=== PATIENT | female | born 1950 | race Caucasian/White ===

== ENCOUNTER 2017-05-26 05:50 | Day surgery (SDC) | payer OTHER ==
[~2017-05-26] VITALS: Ht 157.5 cm; Wt 78.5 kg
[~2017-05-26 05:50] MED LIST: ALBU90OI61 INH; AMLO5 PO; ASPI81CH PO; ATOR40TA PO; BUPR150ER PO; CEFU500 PO; CIPR500 PO; CLON.1 PO; CLOP75 PO; CYPR4 PO; DIAZ5 PO; IBUP400 PO; IRBE150 PO; LEVSOD100 PO; LEVSOD125 PO; LORA10 PO; LOSARTAN-HCTZ1 EACH PO; LOSHYD PO; MECL25 PO; Metoprolol Succ25 MG PO; NICO21TP; NITR.4SL SL; ONDA8 PO; OXYACE5T PO; Omeprazole20 M1 PO; POTA10T PO; POTA8 PO; PRED10 PO; PROM25 PO; TIOT18 INH; TRAM50 PO; VENL150ER PO; VENL75 PO
[2018-03-25] MEDS ORDERED: BUSP5 PO (13:19)
[2018-03-25] MEDS ORDERED: VARE1 PO (15:45)
[2018-03-29] MEDS ORDERED: EXTRA STRENGTH500 MG PO (12:43)
[2018-03-29] MEDS ORDERED: Ferrous Sulfat324 MG PO (12:44)
[2018-03-29] MEDS ORDERED: ASCO500 PO (12:44)
[2018-03-29] MEDS ORDERED: Amoxicillin875 MG PO (12:45)
[2018-03-29] MEDS ORDERED: PRED10 PO (12:46)
== END 2017-05-26 14:29 | disposition home or self-care (01) ==
LOC: ORSCMMR 05:50 → SURS 13:46
PROVIDERS: Surgery
PROC: 0WUF0JZ Supplement Abdominal Wall with Synthetic Substitute, Open Approach (ICD-10-PCS; principal; 2017-05-26 07:30)
DX: K43.2 Incisional hernia without obstruction or gangrene (principal); I10 Essential (primary) hypertension; J44.9 Chronic obstructive pulmonary disease, unspecified; G47.33 Obstructive sleep apnea (adult) (pediatric); I25.10 Atherosclerotic heart disease of native coronary artery without angina pectoris; E03.9 Hypothyroidism, unspecified; F17.210 Nicotine dependence, cigarettes, uncomplicated; Z79.899 Other long term (current) drug therapy; Z79.82 Long term (current) use of aspirin
CPT/HCPCS: J0690; J1100; J1885; J2250; J2405; J2710; J3010; J7120

== ENCOUNTER → 2017-08-22 | Outpatient (CLI) | payer OTHER | END | disposition home or self-care (01) | LOC: LAB 13:51 → LAB SHORT 13:51 | DX: L98.9 Disorder of the skin and subcutaneous tissue, unspecified (principal) | CPT/HCPCS: 87070; 87077; 87147; 87185; 87186; 87205 ==

== ENCOUNTER 2018-12-28 16:39 | Emergency (ER) | payer OTHER ==
[~2018-12-28] VITALS: Ht 157.5 cm; Wt 74.8 kg
[~2018-12-28 16:39] MED LIST changes: +ASCO500 PO; -ASPI81CH PO; +Amoxicillin875 MG PO; +Aspirin EC81 MG PO; +Augmentin 875-1 EACH PO; +BUSP5 PO; +EXTRA STRENGTH500 MG PO; +Ferrous Sulfat324 MG PO; +Prednisone20 MG PO; +VARE1 PO
[2018-12-28] MEDS ORDERED: ONDA4ODT MM (18:31)
== END 2018-12-28 18:38 | disposition home or self-care (01) ==
LOC: ER 16:39
DX: K52.9 Noninfective gastroenteritis and colitis, unspecified (principal); N39.0 Urinary tract infection, site not specified; J44.9 Chronic obstructive pulmonary disease, unspecified; I10 Essential (primary) hypertension; E03.9 Hypothyroidism, unspecified; F32.9 Major depressive disorder, single episode, unspecified; E78.5 Hyperlipidemia, unspecified; I25.10 Atherosclerotic heart disease of native coronary artery without angina pectoris; F17.210 Nicotine dependence, cigarettes, uncomplicated; Z88.2 Allergy status to sulfonamides; Z88.5 Allergy status to narcotic agent; Z79.899 Other long term (current) drug therapy
CPT/HCPCS: 36415; 74176; 82947; 87077; 87086; 87186; 96374; 99284-25; J2405

== ENCOUNTER 2019-02-05 08:45 | Inpatient (IN) | payer OTHER ==
[~2019-02-05] VITALS: Ht 157.5 cm; Wt 73.8 kg
[~2019-02-05 08:45] MED LIST changes: +ONDA4ODT MM
[2019-02-05 09:25] LABS: BASOPHILS ABSOLUTE AUTO 0.06 K/mm3 (0.00-0.23); BASOPHILS PERCENT AUTO 1 % (0-2); EOSINOPHILS ABSOLUTE AUTO 0.34 K/mm3 (0.00-0.68); EOSINOPHILS PERCENT AUTO 3 % (0-6); Hematocrit 40.9 % (33.0-51.0); IMMATURE GRAN ABSOLUTE AUTO 0.04 K/mm3 (0.00-0.10); IMMATURE GRAN PERCENT AUTO 0 % (0-1); LYMPHOCYTES ABSOLUTE AUTO 0.83 K/mm3 (0.84-5.20); LYMPHOCYTES PERCENT AUTO 7 % (21-46); MONOCYTES ABSOLUTE AUTO 0.69 K/mm3 (0.16-1.47); MONOCYTES PERCENT AUTO 6 % (4-13); Mean Corpuscular HGB Conc 31.8 g/dL (31.5-36.5); Mean Corpuscular Volume 95 fL (80-100); Mean Platelet Volume 11.2 fL (9.1-12.4); NEUTROPHILS ABSOLUTE AUTO 10.36 K/mm3 (1.96-9.15); NEUTROPHILS PERCENT AUTO 84 % (41-73); Platelet Count 238 K/mm3 (150-400); RDW Coefficient Variation 12.9 % (11.7-14.2); RDW Standard Deviation 45.1 fL (35.1-46.3); Red Blood Cell Count 4.33 M/mm3 (3.80-5.20); White Blood Cell Count 12.32 K/mm3 (4.00-11.30)
[2019-02-05 09:44] LABS: Alanine Aminotransfer (ALT/SGP 18 U/L (12-78); Albumin, Blood 3.3 g/dL (3.4-5.0); Albumin/Globulin Ratio 0.8 (0.8-1.8); Alk Phos 165 U/L (50-136); Anion Gap 6 mmol/L (6-16); Aspartate Aminotrans (AST/SGOT 15 U/L (12-37); Bilirubin, Total 0.5 mg/dL (0.1-1.0); Blood Urea Nitrogen 21 mg/dL (8-24); Bun/Creatinine Ratio 19.1 (12.0-20.0); CO2, Blood 28 mmol/L (21-32); Calcium, Blood 8.7 mg/dL (8.5-10.1); Chloride, Blood 106 mmol/L (98-108); Globulin, Blood 4.1 g/dL (2.2-4.0); Glomerular Filtration Rate 52 (60-); Glucose, Blood 109 mg/dL (70-99); Potassium, Blood 3.6 mmol/L (3.5-5.5); Sodium, Blood 140 mmol/L (136-145); Total Protein, Blood 7.4 g/dL (6.4-8.2); Troponin I <0.015 ng/mL (0.000-0.040)
[2019-02-05] MEDS ORDERED: Clonazepam0.5 MG PO (12:20)
[2019-02-05] MEDS ORDERED: LOSARTAN POTASS50 MG PO (12:21)
[2019-02-05] MEDS ORDERED: ROPINIROLE HCL1 MG PO (12:21)
[2019-02-05] MEDS ORDERED: MICROZIDE12.5 MG PO (12:21)
--- NOTE | 2019-02-05 18:28 | NUR ---
SHIFT SUMMARY RECEIVED PT TO RM 340 FROM ER. A&O, MARCUS AND CO-OP. RECEIVED REPORT FROM BREANN AREVALO. PT TO ER WITH C/O SOB STARTING YESTERDAY. PER REPORT, PT'S SON WITH RECENT RESPIRATORY ILLNESS RECEIVING ABX AND IH FOR TX. PT THEN REPORTED THAT SHE FELT SHE WAS HAVING SYPTOMS WELL. PT WITH HX OF COPD AND CURRENT SMOKER X PAST 40 YRS. PT ADMITTED FOR STEROID TX. RESTING QUIETLY HF, WATCHING TV. NO C/O. NO S/SX OF DISTRESS NOTED OR REPORTED TO PRESENT. RESP PANEL OBTAINED AND SENT. PT INFORMED OF NEEDED UA, PT IS INDEPENDENT IN . NO FURTHER NEEDS TO PRESENT. CALL LT IN REACH.
[2019-02-05 19:25] LABS: Source, Urine Clean Catch
[2019-02-05 19:31] LABS: Bilirubin, Urine Neg (Neg); Blood, Urine 3+ (Neg); Glucose Qualitative, Urine 1+ (Neg); Ketones, Urine Neg (Neg); Leukocyte Esterase, Urine 2+ (Neg); Nitrite, Urine Neg (Neg); Protein, Urine Neg (Neg); Specific Gravity, Urine 1.015 (1.003-1.022); Urobilinogen, Urine NORM (Normal)
[2019-02-05 19:38] LABS: Appearance, Urine Clear (Clear); Color, Urine Yellow (P-Yellow)
[2019-02-05 19:39] LABS: Bacteria Mod /hpf; Red Blood Cells, Urine 0-2 /hpf (0-2); Squamous Epithelial Cells Not Seen /hpf (Few)
[2019-02-05 20:20] LABS: Adenovirus Not Detected (NOT DETECT); Bordetella pertussis Not Detected (NOT DETECT); Chlamydophila pneumoniae Not Detected (NOT DETECT); Coronavirus 229E Not Detected (NOT DETECT); Coronavirus HKU1 Not Detected (NOT DETECT); Coronavirus NL63 Not Detected (NOT DETECT); Coronavirus OC43 Not Detected (NOT DETECT); Human Metapneumovirus Not Detected (NOT DETECT); Human Rhinovirus/Enterovirus Detected (NOT DETECT); Influenza A Not Detected (NOT DETECT); Influenza A/2009-H1 Not Detected (NOT DETECT); Influenza A/H1 Not Detected (NOT DETECT); Influenza A/H3 Not Detected (NOT DETECT); Influenza B Not Detected (NOT DETECT); Mycoplasma pneumoniae Not Detected (NOT DETECT); Parainfluenza Virus 1 Not Detected (NOT DETECT); Parainfluenza Virus 2 Not Detected (NOT DETECT); Parainfluenza Virus 3 Not Detected (NOT DETECT); Parainfluenza Virus 4 Not Detected (NOT DETECT); Respiratory Syncytial Virus Not Detected (NOT DETECT)
[2019-02-06 05:23] LABS: BASOPHILS ABSOLUTE AUTO 0.03 K/mm3 (0.00-0.23); BASOPHILS PERCENT AUTO 0 % (0-2); EOSINOPHILS PERCENT AUTO 0 % (0-6); Hematocrit 35.4 % (33.0-51.0); Hemoglobin 11.4 g/dL (11.5-16.0); IMMATURE GRAN ABSOLUTE AUTO 0.16 K/mm3 (0.00-0.10); IMMATURE GRAN PERCENT AUTO 1 % (0-1); LYMPHOCYTES ABSOLUTE AUTO 0.86 K/mm3 (0.84-5.20); LYMPHOCYTES PERCENT AUTO 4 % (21-46); MONOCYTES ABSOLUTE AUTO 0.48 K/mm3 (0.16-1.47); MONOCYTES PERCENT AUTO 2 % (4-13); Mean Corpuscular HGB 29.9 pg (26.0-34.0); Mean Corpuscular HGB Conc 32.2 g/dL (31.5-36.5); Mean Corpuscular Volume 93 fL (80-100); Mean Platelet Volume 11.3 fL (9.1-12.4); NEUTROPHILS ABSOLUTE AUTO 18.96 K/mm3 (1.96-9.15); NEUTROPHILS PERCENT AUTO 93 % (41-73); Platelet Count 220 K/mm3 (150-400); RDW Coefficient Variation 13.1 % (11.7-14.2); RDW Standard Deviation 44.7 fL (35.1-46.3); Red Blood Cell Count 3.81 M/mm3 (3.80-5.20); White Blood Cell Count 20.49 K/mm3 (4.00-11.30)
[2019-02-06 05:41] LABS: Alanine Aminotransfer (ALT/SGP 15 U/L (12-78); Albumin, Blood 2.8 g/dL (3.4-5.0); Albumin/Globulin Ratio 0.7 (0.8-1.8); Alk Phos 129 U/L (50-136); Anion Gap 7 mmol/L (6-16); Aspartate Aminotrans (AST/SGOT 13 U/L (12-37); Bilirubin, Total 0.2 mg/dL (0.1-1.0); Blood Urea Nitrogen 20 mg/dL (8-24); Bun/Creatinine Ratio 20.9 (12.0-20.0); CO2, Blood 27 mmol/L (21-32); Calcium, Blood 8.6 mg/dL (8.5-10.1); Chloride, Blood 106 mmol/L (98-108); Creatinine, Blood 0.96 mg/dL (0.40-1.00); Globulin, Blood 3.8 g/dL (2.2-4.0); Glomerular Filtration Rate >60 (60-); Glucose, Blood 173 mg/dL (70-99); Magnesium, Blood 1.5 mg/dL (1.6-2.4); Potassium, Blood 3.6 mmol/L (3.5-5.5); Sodium, Blood 140 mmol/L (136-145); Total Protein, Blood 6.6 g/dL (6.4-8.2)
--- NOTE | 2019-02-06 07:34 | NUR ---
02/06/19 0710 AWAKENED FOR AM MEDS. CPAP WAS ON ALL NIGHT WITH O2 AT 3LPM. STATES SHE SLEPT POORLY DUE TO STEROID MED. UP TO BS FOR LARGE BROWN BM AND VOIDING.
--- NOTE | 2019-02-06 14:19 | NUR ---
CHEST PAIN: PATIENT REPORTING CHEST PAIN, THROAT TIGHTNESS, AND JAW PAIN. PATIENT REPORTS THAT AT THE PEAK, THE CHEST PAIN WAS AT A 7/10 AND NOW IT IS A 2/10. PATIENT REPORTS A COORELATION BETWEEN HER DUNEB TREATMENTS AND THESE SENSATIONS. PATIENT'S VITAL SIGNS ARE STABLE COMPARED TO PRIOR VITALS SIGNS. PATIENT DENIES SOB OR DIFFICULTY BREATHING. PATIENT RESTING IN BED. PATIENT DENIES DIZZINESS OR LIGHTHEADEDNESS. PATIENT REPORTS SIMILAR SENSATIONS PRIOR TO HER CABG SURGERY. NOTIFIED DR. MARCH. STAT EKG AND TROPONIN. NOTIFIED DR. MARCH OF EKG RESULTS. DR. MARCH IN TO VISIT PATIENT AND DISCUSS THE DUONEB TREATMENT AND EKG RESULTS (NO SIGNIFICANT CHANGES COMPARED TO ED EKG TAKEN AT ADMISSION). PATIENT AGREES TO NOTIFY STAFF IF SHE EXPERIENCES THE SAME SENSATIONS AFTER HER DUONEB TREATMENT THIS EVENING. PATIENT CALM AND COOPERATIVE.
--- NOTE | 2019-02-06 18:39 | NUR ---
END OF SHIFT SUMMARY: PATIENT REPORTED FEELING MUCH BETTER THIS MORNING. BY THE END OF THE SHIFT PATIENT WAS FEEL ING FATIGUED. PATIENT REPORTED CHEST PAIN, THROAT TIGHTNESS, AND JAW PAIN THAT SHE RELATES TO THE DUONEB TREATMENT. SEE NURSE'S NOTE. DR. MARCH REQUESTED THAT SHE TRY THE DUONEB TREATMENT ONE MORE TIME. PATIENT REPORTED THE SAME RESULTS POST-TREATMENT AND IS REQUESTING TO NO LONGER HAVE THE DUONEB TREATMENTS. DR. MARCH NOTIFIED. NEW ORDER TO DISCONTINUE DUONEB. PATIENT CONTINUES TO HAVE SOME SOB WITH ACTIVITY AND ANXIETY. O2 SATURATION MAINTAINED FROM 90-92% ON 3L/MIN OF O2 VIA NC.
--- NOTE | 2019-02-07 06:40 | NUR ---
SHIFT SUMMARY NO ACUTE EVENTS OVERNIGHT. PATIENT SLEPT WITH CPAP ON THROUGHOUT THE NIGHT. RIGHT HAND IV SALINE LOCKED AND PATENT. PATIENT UP A BENJAMIN IN ROOM AND TO BATHROOM. WILL CONTINUE TO MONITOR AND REPORT TO ONCOMING RN.
[2019-02-07] MEDS ORDERED: AIRDUO RESPICL1 EAC2 INH (14:46)
[2019-02-07] MEDS ORDERED: Ropinirole HCl1 MG PO (14:47)
[2019-02-07] MEDS ORDERED: Nicoderm Cq1 EAC1 TOP (14:47)
[2019-02-07] MEDS ORDERED: Prednisone10 MG PO (14:49)
--- NOTE | 2019-02-07 15:58 | NUR ---
Pt visit this afternoon. Pt just finished getting dressed and states she is getting discharged. Visit was brief. Engaged in discussion regarding AD/POLST. Pt reports having one completed with her PCP. Pt reports no concerns at this time. Will call PCP for copy of AD/POLST. Palliative Care will remain available.
--- NOTE | 2019-02-07 16:26 | NUR ---
DISCHARGE PT STATE SHORTNESS OF BREATH CONTINUES W EXERTION HOWEVER IMPROVED. ABLE TO TITRATE OFF OXYGEN @ REST, BIOX 93%, DR MARCH STATE SHE MAY GO HOME TODAY AFTER HOME O2 EVAL. RT STATE PASSED EVAL, NO ADDITIONAL HOME OXYGEN NEEDED. DR ROBERTS D/C HOME ORDERS. SCRIPTS FAXED TO [facility]. IV D/C INTACT. D/C INSTRUCT REVIEWED W PT & DAUGHTER. SHE DRESS & GATHER BELONGINGS IND. W/C ESCORT FROM HOSP PROVIDED. SHE IS PLEASANT/APPRECIATIVE.
== END 2019-02-07 16:25 | disposition home or self-care (01) | DRG 871 ==
LOC: ER 08:45 → MEDS 15:23
PROVIDERS: Emergency Medicine; Nurse Practitioner Acute Care; ADMIT Family Medicine
PROC: 5A09457 Assistance with Respiratory Ventilation, 24-96 Consecutive Hours, Continuous Positive Airway Pressure (ICD-10-PCS; principal; 2019-02-05)
DX: A41.9 Sepsis, unspecified organism (principal); J96.21 Acute and chronic respiratory failure with hypoxia; J44.1 Chronic obstructive pulmonary disease with (acute) exacerbation; I25.10 Atherosclerotic heart disease of native coronary artery without angina pectoris; Z85.819 Personal history of malignant neoplasm of unspecified site of lip, oral cavity, and pharynx; I10 Essential (primary) hypertension; E83.42 Hypomagnesemia; E03.9 Hypothyroidism, unspecified; F17.210 Nicotine dependence, cigarettes, uncomplicated; G47.33 Obstructive sleep apnea (adult) (pediatric); B97.89 Other viral agents as the cause of diseases classified elsewhere; Z99.81 Dependence on supplemental oxygen; Z95.1 Presence of aortocoronary bypass graft; F32.9 Major depressive disorder, single episode, unspecified; F43.10 Post-traumatic stress disorder, unspecified; K21.9 Gastro-esophageal reflux disease without esophagitis; F41.1 Generalized anxiety disorder
CPT/HCPCS: 0099U; 36415; 71046; 80053; 81001; 83735; 83880; 84484; 85025; 87086; 93005; 93010; 94640; 94644; 94660; 94761; 94762; 96361; 96374; 99285-25; A9270; J1650; J2930; J3475; J7030; J7512

== ENCOUNTER 2021-07-29 11:02 | Emergency (ER) | payer OTHER ==
[~2021-07-29] VITALS: Ht 157.5 cm; Wt 76.2 kg
[~2021-07-29 11:02] MED LIST changes: +AIRDUO RESPICL1 EAC2 INH; +Clonazepam0.5 MG PO; +LOSARTAN POTASS50 MG PO; +MICROZIDE12.5 MG PO; +Nicoderm Cq1 EAC1 TOP; +Prednisone10 MG PO; +ROPINIROLE HCL1 MG PO; +Ropinirole HCl1 MG PO
[2021-07-29 11:59] LABS: BASOPHILS ABSOLUTE AUTO 0.06 K/mm3 (0.00-0.23); BASOPHILS PERCENT AUTO 1 % (0-2); EOSINOPHILS ABSOLUTE AUTO 0.37 K/mm3 (0.00-0.68); EOSINOPHILS PERCENT AUTO 3 % (0-6); Hematocrit 34.7 % (33.0-51.0); Hemoglobin 11.2 g/dL (11.5-16.0); IMMATURE GRAN ABSOLUTE AUTO 0.04 K/mm3 (0.00-0.10); IMMATURE GRAN PERCENT AUTO 0 % (0-1); LYMPHOCYTES ABSOLUTE AUTO 1.81 K/mm3 (0.84-5.20); LYMPHOCYTES PERCENT AUTO 16 % (21-46); MONOCYTES ABSOLUTE AUTO 1.02 K/mm3 (0.16-1.47); MONOCYTES PERCENT AUTO 9 % (4-13); Mean Corpuscular HGB 30.4 pg (26.0-34.0); Mean Corpuscular HGB Conc 32.3 g/dL (31.5-36.5); Mean Corpuscular Volume 94 fL (80-100); Mean Platelet Volume 10.9 fL (9.1-12.4); NEUTROPHILS ABSOLUTE AUTO 7.98 K/mm3 (1.96-9.15); NEUTROPHILS PERCENT AUTO 71 % (41-73); Platelet Count 279 K/mm3 (150-400); RDW Standard Deviation 44.7 fL (35.1-46.3); Red Blood Cell Count 3.69 M/mm3 (3.80-5.20); White Blood Cell Count 11.28 K/mm3 (4.00-11.30)
[2021-07-29 12:12] LABS: Albumin, Blood 2.8 g/dL (3.4-5.0); Albumin/Globulin Ratio 0.7 (0.8-1.8); Bilirubin, Total 0.4 mg/dL (0.1-1.0); Bun/Creatinine Ratio 8.7 (12.0-20.0); Creatinine, Blood 1.27 mg/dL (0.40-1.00); Globulin, Blood 4.3 g/dL (2.2-4.0); Potassium, Blood 3.1 mmol/L (3.5-5.5); Total Protein, Blood 7.1 g/dL (6.4-8.2)
[2021-07-29 15:47] LABS: Source, Urine Clean Catch
[2021-07-29 16:10] LABS: Appearance, Urine Clear (Clear); Bilirubin, Urine Neg (Neg); Blood, Urine 2+ (Neg); Color, Urine Yellow (P-Yellow); Glucose Qualitative, Urine Neg (Neg); Ketones, Urine Neg (Neg); Leukocyte Esterase, Urine Neg (Neg); Nitrite, Urine Neg (Neg); Protein, Urine Neg (Neg); Urobilinogen, Urine NORM (Normal)
[2021-07-29 16:47] LABS: Bacteria Few /hpf; Squamous Epithelial Cells Few /hpf (Few); White Blood Cells, Urine 0-2 /hpf (0-5)
[2021-07-29 18:44] LABS: Adenovirus F 40/41 Not Detected (NOT DETECT); Astrovirus Not Detected (NOT DETECT); Campylobacter Sp Not Detected (NOT DETECT); Cryptosporidium Not Detected (NOT DETECT); Cyclospora Cayetanensis Not Detected (NOT DETECT); E. Coli O157 Not Detected (NOT DETECT); Entamoeba Histolytica Not Detected (NOT DETECT); Enteroaggregative E. coli-EAEC Not Detected (NOT DETECT); Enteropathogenic E. coli-EPEC Not Detected (NOT DETECT); Enterotoxigenic E. coli-ETEC Not Detected (NOT DETECT); Giardia Lamblia Not Detected (NOT DETECT); Norovirus GI/GII Not Detected (NOT DETECT); Plesiomonas Shigelloides Not Detected (NOT DETECT); Rotavirus A Not Detected (NOT DETECT); Salmonella Sp Not Detected (NOT DETECT); Sapovirus Not Detected (NOT DETECT); Shiga Toxin-prod E. coli-STEC Not Detected (NOT DETECT); Shigella/Enteroin E. coli-EIEC Not Detected (NOT DETECT); Vibrio Cholerae Not Detected (NOT DETECT); Vibrio Sp Not Detected (NOT DETECT); Yersinia Enterocolitica Not Detected (NOT DETECT)
== END 2021-07-29 17:33 | disposition home or self-care (01) ==
LOC: ER 11:02
PROVIDERS: Physician Assistant
DX: K52.9 Noninfective gastroenteritis and colitis, unspecified (principal); E87.6 Hypokalemia; I12.9 Hypertensive chronic kidney disease with stage 1 through stage 4 chronic kidney disease, or unspecified chronic kidney disease; N18.9 Chronic kidney disease, unspecified; Z99.2 Dependence on renal dialysis; K21.9 Gastro-esophageal reflux disease without esophagitis; E78.5 Hyperlipidemia, unspecified; J44.9 Chronic obstructive pulmonary disease, unspecified; F17.210 Nicotine dependence, cigarettes, uncomplicated; Z79.899 Other long term (current) drug therapy; Z88.2 Allergy status to sulfonamides; Z88.5 Allergy status to narcotic agent
CPT/HCPCS: 0097U; 36415; 74177; 80053; 81001; 83690; 85025; 87324; 99284-25; A9270; Q9967

== ENCOUNTER 2021-11-30 07:36 | Day surgery (SDC) | payer OTHER ==
[~2021-11-30] VITALS: Ht 157.5 cm; Wt 76.5 kg
[2021-11-30] MEDS ORDERED: PROP10 PO (08:10)
--- NOTE | 2021-11-30 08:22 | NUR ---
11/30/21 0822 Apple Barrios CALL LIGHT WITHIN REACH. TETRACAINE AT 0805 IN THE LEFT EYE PLEDGETT IN THE LEFT EYE AT 0806
== END 2021-11-30 10:08 | disposition home or self-care (01) ==
LOC: ORSCSDS 07:36
PROVIDERS: Ophthalmology
PROC: 08RK3JZ Replacement of Left Lens with Synthetic Substitute, Percutaneous Approach (ICD-10-PCS; principal; 2021-11-30 09:00)
DX: H25.12 Age-related nuclear cataract, left eye (principal); I25.10 Atherosclerotic heart disease of native coronary artery without angina pectoris; Z95.1 Presence of aortocoronary bypass graft; I12.9 Hypertensive chronic kidney disease with stage 1 through stage 4 chronic kidney disease, or unspecified chronic kidney disease; N18.9 Chronic kidney disease, unspecified; K21.9 Gastro-esophageal reflux disease without esophagitis; J44.9 Chronic obstructive pulmonary disease, unspecified; F32.A Depression, unspecified; E78.00 Pure hypercholesterolemia, unspecified; E03.9 Hypothyroidism, unspecified; F17.210 Nicotine dependence, cigarettes, uncomplicated; Z79.899 Other long term (current) drug therapy
CPT/HCPCS: J2001; J2250; J3301; J7040; V2632

== ENCOUNTER → 2022-04-30 | Outpatient (CLI) | payer OTHER ==
[~2022-04-30] MED LIST changes: +PROP10 PO
[2022-04-30 12:12] LABS: BASOPHILS ABSOLUTE AUTO 0.08 K/mm3 (0.00-0.23); BASOPHILS PERCENT AUTO 0 % (0-2); EOSINOPHILS PERCENT AUTO 0 % (0-6); Hemoglobin 11.3 g/dL (11.5-16.0); IMMATURE GRAN PERCENT AUTO 0 % (0-1); LYMPHOCYTES ABSOLUTE AUTO 1.75 K/mm3 (0.84-5.20); LYMPHOCYTES PERCENT AUTO 8 % (21-46); MONOCYTES ABSOLUTE AUTO 1.82 K/mm3 (0.16-1.47); MONOCYTES PERCENT AUTO 8 % (4-13); Mean Corpuscular HGB 29.2 pg (26.0-34.0); Mean Corpuscular HGB Conc 32.3 g/dL (31.5-36.5); Mean Corpuscular Volume 90 fL (80-100); Mean Platelet Volume 10.7 fL (9.1-12.4); NEUTROPHILS ABSOLUTE AUTO 18.39 K/mm3 (1.96-9.15); NEUTROPHILS PERCENT AUTO 83 % (41-73); Platelet Count 312 K/mm3 (150-400); RDW Coefficient Variation 13.4 % (11.7-14.2); Red Blood Cell Count 3.87 M/mm3 (3.80-5.20); White Blood Cell Count 22.24 K/mm3 (4.00-11.30)
[2022-04-30 12:24] LABS: Albumin, Blood 2.6 g/dL (3.4-5.0); Albumin/Globulin Ratio 0.5 (0.8-1.8); Bilirubin, Direct 0.3 mg/dL (0.0-0.3); Bilirubin, Indirect 0.4 mg/dL (0.1-0.7); Bilirubin, Total 0.7 mg/dL (0.1-1.0); Bun/Creatinine Ratio 11.1 (12.0-20.0); Calcium, Blood 8.2 mg/dL (8.5-10.1); Creatinine, Blood 1.44 mg/dL (0.40-1.00); Potassium, Blood 3.1 mmol/L (3.5-5.5); Total Protein, Blood 7.6 g/dL (6.4-8.2)
== END ==
LOC: LAB SHORT 12:09 → LAB 12:09
PROVIDERS: Family Medicine
DX: I10 Essential (primary) hypertension (principal)
CPT/HCPCS: 80053; 82248; 85025

== ENCOUNTER 2022-05-07 02:52 | Emergency (ER) | payer OTHER ==
[~2022-05-07] VITALS: Ht 160 cm; Wt 72.6 kg
[2022-05-07 04:00] LABS: BASOPHILS ABSOLUTE AUTO 0.09 K/mm3 (0.00-0.23); BASOPHILS PERCENT AUTO 0 % (0-2); EOSINOPHILS ABSOLUTE AUTO 0.14 K/mm3 (0.00-0.68); EOSINOPHILS PERCENT AUTO 1 % (0-6); Hematocrit 33.8 % (33.0-51.0); Hemoglobin 10.9 g/dL (11.5-16.0); IMMATURE GRAN PERCENT AUTO 1 % (0-1); LYMPHOCYTES ABSOLUTE AUTO 1.37 K/mm3 (0.84-5.20); LYMPHOCYTES PERCENT AUTO 6 % (21-46); MONOCYTES ABSOLUTE AUTO 1.87 K/mm3 (0.16-1.47); MONOCYTES PERCENT AUTO 8 % (4-13); Mean Corpuscular HGB 28.8 pg (26.0-34.0); Mean Corpuscular HGB Conc 32.2 g/dL (31.5-36.5); Mean Corpuscular Volume 89 fL (80-100); Mean Platelet Volume 11.1 fL (9.1-12.4); NEUTROPHILS ABSOLUTE AUTO 19.87 K/mm3 (1.96-9.15); NEUTROPHILS PERCENT AUTO 85 % (41-73); Platelet Count 437 K/mm3 (150-400); RDW Coefficient Variation 14.1 % (11.7-14.2); RDW Standard Deviation 45.7 fL (35.1-46.3); Red Blood Cell Count 3.78 M/mm3 (3.80-5.20); White Blood Cell Count 23.54 K/mm3 (4.00-11.30)
[2022-05-07 04:23] LABS: Albumin/Globulin Ratio 0.4 (0.8-1.8); Bilirubin, Total 0.9 mg/dL (0.1-1.0); Bun/Creatinine Ratio 16.5 (12.0-20.0); Calcium, Blood 8.9 mg/dL (8.5-10.1); Creatinine, Blood 1.21 mg/dL (0.40-1.00); Globulin, Blood 4.5 g/dL (2.2-4.0); Potassium, Blood 3.7 mmol/L (3.5-5.5); Total Protein, Blood 6.5 g/dL (6.4-8.2)
== END 2022-05-07 05:22 | disposition left against medical advice (07) ==
LOC: ER 02:52
PROVIDERS: Student in an Organized Health Care Education/Training Program
DX: R06.02 Shortness of breath (principal); Z53.21 Procedure and treatment not carried out due to patient leaving prior to being seen by health care provider
CPT/HCPCS: 36415; 80053; 85025; 93005; 93010

== ENCOUNTER 2022-05-13 10:39 | Inpatient (IN) | payer OTHER ==
[~2022-05-13] VITALS: Ht 167.6 cm; Wt 70.6 kg
[2022-05-13 11:31] LABS: BASOPHILS ABSOLUTE AUTO 0.06 K/mm3 (0.00-0.23); BASOPHILS PERCENT AUTO 0 % (0-2); EOSINOPHILS ABSOLUTE AUTO 0.08 K/mm3 (0.00-0.68); EOSINOPHILS PERCENT AUTO 0 % (0-6); Hematocrit 31.5 % (33.0-51.0); Hemoglobin 10.7 g/dL (11.5-16.0); IMMATURE GRAN ABSOLUTE AUTO 0.28 K/mm3 (0.00-0.10); IMMATURE GRAN PERCENT AUTO 1 % (0-1); LYMPHOCYTES ABSOLUTE AUTO 1.43 K/mm3 (0.84-5.20); LYMPHOCYTES PERCENT AUTO 5 % (21-46); MONOCYTES ABSOLUTE AUTO 1.97 K/mm3 (0.16-1.47); MONOCYTES PERCENT AUTO 7 % (4-13); Mean Corpuscular HGB 29.8 pg (26.0-34.0); Mean Corpuscular Volume 88 fL (80-100); Mean Platelet Volume 10.5 fL (9.1-12.4); NEUTROPHILS PERCENT AUTO 87 % (41-73); Platelet Count 546 K/mm3 (150-400); RDW Coefficient Variation 14.6 % (11.7-14.2); RDW Standard Deviation 47.2 fL (35.1-46.3); Red Blood Cell Count 3.59 M/mm3 (3.80-5.20); White Blood Cell Count 28.92 K/mm3 (4.00-11.30)
[2022-05-13 11:54] LABS: Albumin, Blood 1.7 g/dL (3.4-5.0); Albumin/Globulin Ratio 0.3 (0.8-1.8); Bilirubin, Total 0.7 mg/dL (0.1-1.0); Calcium, Blood 8.5 mg/dL (8.5-10.1); Creatinine, Blood 1.2 mg/dL (0.40-1.00); Globulin, Blood 5.8 g/dL (2.2-4.0); Potassium, Blood 3.2 mmol/L (3.5-5.5); Thyroid Stimulating Hormone 9.39 uIU/mL (0.360-4.800); Total Protein, Blood 7.5 g/dL (6.4-8.2)
[2022-05-13 14:50] LABS: Source, Urine Straight Cath
[2022-05-13 14:53] LABS: Appearance, Urine Clear (Clear); Blood, Urine 1+ (Neg); Color, Urine Amber (P-Yellow); Glucose Qualitative, Urine Neg (Neg); Ketones, Urine Neg (Neg); Leukocyte Esterase, Urine 1+ (Neg); Nitrite, Urine Neg (Neg); Protein, Urine 2+ (Neg); Urobilinogen, Urine 1+ (Normal)
[2022-05-13 15:11] LABS: Bilirubin, Urine 1+ (Neg)
[2022-05-13 15:12] LABS: Bacteria Many /hpf; Hyaline Casts 0-2 /lpf (0-2); Squamous Epithelial Cells Many /hpf (Few); Transitional Epithelial Cells Rare /hpf (0-Rare)
[2022-05-13 17:59] LABS: Influenza A, PCR NEGATIVE (NEGATIVE); Influenza B, PCR NEGATIVE (NEGATIVE); Resp Syncytial Virus, PCR NEGATIVE (NEGATIVE); SARS-Cov-2 (COVID-19) PCR, MMC NEGATIVE (NEGATIVE)
[2022-05-13] MEDS ORDERED: FLUT1DIS5 INH (22:08)
[2022-05-13] MEDS ORDERED: OLME20 PO (22:09)
[2022-05-14 04:24] LABS: BASOPHILS ABSOLUTE AUTO 0.08 K/mm3 (0.00-0.23); BASOPHILS PERCENT AUTO 0 % (0-2); EOSINOPHILS ABSOLUTE AUTO 0.22 K/mm3 (0.00-0.68); EOSINOPHILS PERCENT AUTO 1 % (0-6); Hemoglobin 8.9 g/dL (11.5-16.0); IMMATURE GRAN ABSOLUTE AUTO 0.46 K/mm3 (0.00-0.10); IMMATURE GRAN PERCENT AUTO 2 % (0-1); LYMPHOCYTES ABSOLUTE AUTO 1.46 K/mm3 (0.84-5.20); LYMPHOCYTES PERCENT AUTO 5 % (21-46); MONOCYTES ABSOLUTE AUTO 2.07 K/mm3 (0.16-1.47); MONOCYTES PERCENT AUTO 7 % (4-13); Mean Corpuscular HGB 28.9 pg (26.0-34.0); Mean Corpuscular HGB Conc 31.8 g/dL (31.5-36.5); Mean Corpuscular Volume 91 fL (80-100); Mean Platelet Volume 10.6 fL (9.1-12.4); NEUTROPHILS ABSOLUTE AUTO 25.03 K/mm3 (1.96-9.15); NEUTROPHILS PERCENT AUTO 85 % (41-73); Platelet Count 437 K/mm3 (150-400); RDW Coefficient Variation 14.9 % (11.7-14.2); RDW Standard Deviation 49.2 fL (35.1-46.3); Red Blood Cell Count 3.08 M/mm3 (3.80-5.20); White Blood Cell Count 29.32 K/mm3 (4.00-11.30)
[2022-05-14 04:51] LABS: Albumin, Blood 1.4 g/dL (3.4-5.0); Albumin/Globulin Ratio 0.3 (0.8-1.8); Bilirubin, Total 0.6 mg/dL (0.1-1.0); Bun/Creatinine Ratio 15.9 (12.0-20.0); Calcium, Blood 7.8 mg/dL (8.5-10.1); Creatinine, Blood 1.07 mg/dL (0.40-1.00); Globulin, Blood 4.8 g/dL (2.2-4.0); Magnesium, Blood 1.3 mg/dL (1.6-2.4); Potassium, Blood 3.7 mmol/L (3.5-5.5); Total Protein, Blood 6.2 g/dL (6.4-8.2)
--- NOTE | 2022-05-14 05:24 | NUR ---
ARRIVAL TO PCU7/SHIFT SUMMARY PT ARRIVED TO PCU7 AT APPROXIMATELY 1999. PT TRANSFERED FROM ER GURNEY TO HOSPTIAL BED WITH SBA. PT A&Ox4, CALLS AND COMMUNICATES NEEDS APPROPRIATELY. VSS, SpO2> 92%, PT ARRIVED ON 4L VIA NC, REPORTING MILD SOB. BP STABLE, SINUS 90's, DENIES CP/PRESSURE. SBA TO BATHROOM, CONTINENT OF URINE, NO BM THIS SHIFT. NS @ 100mls/hr. PT ABLE TO REST COMFORTABLY THROUGHOUT THE SHIFT. NO OTHER EVENTS, WILL REPORT TO ONCOMING RN.
--- NOTE | 2022-05-14 07:02 | NUR ---
UPDATE NOTIFIED PHARMACY THAT UNASYN WAS ADMINISTERED LATE D/T MED NOT GIVEN ON TIME IN ER, ASKED PHARMACIST IF THE 0600 DOSE NEEDED TO BE PUSHED BACK, PHARMACIST INSTRUCTED THIS RN TO START THE 0600 UNASYN AT 0659.
--- NOTE | 2022-05-14 17:20 | NUR ---
SHIFT SUMMARY NO ACUTE CHANGES DURING SHIFT. PT ALERT AND ORIENTED, CALLS APPROPRIATELY. PT CONTINUED WITH INTENSE DREAMS, YELLS AT TIMES. NS INFUSING AT 100 ML/HR. PT REMAINS ON 2L NC, SPO2 > 92%. MAG REPLACED PER ORDERS. NO C/O PAIN. CONTINUE IV ABX. CALL LIGHT WITHIN REACH.
--- NOTE | 2022-05-14 22:26 | NUR ---
PT REQUESTED FOUR RAILS BE RAISED ON THE BED DUE TO PT'S REPORT OF NIGHT TERRORS.
[2022-05-15 04:33] LABS: BASOPHILS ABSOLUTE AUTO 0.05 K/mm3 (0.00-0.23); BASOPHILS PERCENT AUTO 0 % (0-2); EOSINOPHILS ABSOLUTE AUTO 0.29 K/mm3 (0.00-0.68); EOSINOPHILS PERCENT AUTO 1 % (0-6); Hematocrit 27.6 % (33.0-51.0); Hemoglobin 8.6 g/dL (11.5-16.0); IMMATURE GRAN ABSOLUTE AUTO 0.17 K/mm3 (0.00-0.10); IMMATURE GRAN PERCENT AUTO 1 % (0-1); LYMPHOCYTES ABSOLUTE AUTO 1.35 K/mm3 (0.84-5.20); LYMPHOCYTES PERCENT AUTO 7 % (21-46); MONOCYTES ABSOLUTE AUTO 1.55 K/mm3 (0.16-1.47); MONOCYTES PERCENT AUTO 8 % (4-13); Mean Corpuscular HGB 28.9 pg (26.0-34.0); Mean Corpuscular HGB Conc 31.2 g/dL (31.5-36.5); Mean Corpuscular Volume 93 fL (80-100); Mean Platelet Volume 10.6 fL (9.1-12.4); NEUTROPHILS ABSOLUTE AUTO 17.25 K/mm3 (1.96-9.15); NEUTROPHILS PERCENT AUTO 84 % (41-73); Platelet Count 457 K/mm3 (150-400); RDW Coefficient Variation 15.2 % (11.7-14.2); RDW Standard Deviation 51.9 fL (35.1-46.3); Red Blood Cell Count 2.98 M/mm3 (3.80-5.20); White Blood Cell Count 20.66 K/mm3 (4.00-11.30)
[2022-05-15 05:02] LABS: Bun/Creatinine Ratio 11.5 (12.0-20.0); Calcium, Blood 7.9 mg/dL (8.5-10.1); Creatinine, Blood 0.87 mg/dL (0.40-1.00); Magnesium, Blood 1.8 mg/dL (1.6-2.4); Potassium, Blood 3.2 mmol/L (3.5-5.5)
--- NOTE | 2022-05-15 06:37 | NUR ---
THERAPIST SUMMARY ASSUMED CARE OF THE PT AT 1900. SHE IS ALERT AND ORIENTED X4. THE PT IS SLIGHTLY UNSTEADY ON HER FEET AND IS A SBA TO THE BATHROOM DUE TO SOME DIZZINESS WHEN TURNING QUICKLY. SHE HAS BEEN SATTING 98% ON 1L BY NC SO WAS TRIALED ON RA AND HAS BEEN RANGING BETWEEN 90 AND 94% WITH HER HX OF COPD. TELE NOTED TO HAVE A WANDERING ATRIAL PACEMAKER BUT REMAINED IN THE 90S AND UP TO 130S WITH ACTIVITY AND 150S WITH URINATION. PT HAS A FREQUENT HACKING COUGH. SHE ADMITS TO HX OF NIGHT TERRORS AND HAS BEEN RESTLESS INTERMITTENTLY. PT GIVEN TYLENOL X2 AND HEATING PAD FOR PAIN IN THE MID BACK AREA RADIATING DOWN. PT RECEIVING IV ABX THERAPY AND MAINTENANCE NS.
--- NOTE | 2022-05-15 18:06 | NUR ---
Shift Summary Pt alert, orineted x4; calm and cooperative with care. Pt resting in bed, up with sba to bathroom. Pt denies pain, chest pain/pressure, nausea and dizziness. Spo2 >90% on ra, pt reports sob with activity. tele sinus 90's, bp elevated notified Dr Lopez, new orders entered. No other acute changes noted. Will continue to monitor.
[2022-05-16 04:26] LABS: BASOPHILS ABSOLUTE AUTO 0.03 K/mm3 (0.00-0.23); BASOPHILS PERCENT AUTO 0 % (0-2); EOSINOPHILS ABSOLUTE AUTO 0.15 K/mm3 (0.00-0.68); EOSINOPHILS PERCENT AUTO 1 % (0-6); Hematocrit 25.1 % (33.0-51.0); Hemoglobin 8.1 g/dL (11.5-16.0); IMMATURE GRAN ABSOLUTE AUTO 0.08 K/mm3 (0.00-0.10); IMMATURE GRAN PERCENT AUTO 1 % (0-1); LYMPHOCYTES ABSOLUTE AUTO 1.58 K/mm3 (0.84-5.20); LYMPHOCYTES PERCENT AUTO 10 % (21-46); MONOCYTES ABSOLUTE AUTO 1.22 K/mm3 (0.16-1.47); MONOCYTES PERCENT AUTO 8 % (4-13); Mean Corpuscular HGB 29.1 pg (26.0-34.0); Mean Corpuscular HGB Conc 32.3 g/dL (31.5-36.5); Mean Corpuscular Volume 90 fL (80-100); Mean Platelet Volume 10.5 fL (9.1-12.4); NEUTROPHILS ABSOLUTE AUTO 12.73 K/mm3 (1.96-9.15); NEUTROPHILS PERCENT AUTO 81 % (41-73); Platelet Count 410 K/mm3 (150-400); RDW Coefficient Variation 14.9 % (11.7-14.2); RDW Standard Deviation 49.3 fL (35.1-46.3); Red Blood Cell Count 2.78 M/mm3 (3.80-5.20); White Blood Cell Count 15.79 K/mm3 (4.00-11.30)
--- NOTE | 2022-05-16 06:08 | NUR ---
SHIFT SUMMARY A/OX4, SBA TO BATHROOM. IV TO OCTAVIO INFILTRATED, 22G PLACED TO R.AC. CURRENTLY ON RA. DENIES PAIN OR SOB. SLEPT T/O THE NIGHT. DAUGHTER AT BEDSIDE FOR MAJORITY OF THE NIGHT. VSS, NO ACUTE CHANGES AT THIS TIME. BED IN LOWEST POSITION WITH CALL LIGHT IN REACH. WILL CONTINUE TO MONITOR AND REPORT TO ONCOMING RN.
[2022-05-16 06:11] LABS: Albumin, Blood 1.3 g/dL (3.4-5.0); Albumin/Globulin Ratio 0.3 (0.8-1.8); Bilirubin, Total 0.5 mg/dL (0.1-1.0); Bun/Creatinine Ratio 7.2 (12.0-20.0); Calcium, Blood 7.8 mg/dL (8.5-10.1); Creatinine, Blood 0.84 mg/dL (0.40-1.00); Globulin, Blood 4.6 g/dL (2.2-4.0); Potassium, Blood 3.5 mmol/L (3.5-5.5); Total Protein, Blood 5.9 g/dL (6.4-8.2)
--- NOTE | 2022-05-16 14:39 | NUR ---
RN SHIFT/TRANSFER SUMMARY PT ALERT AND AWAKE THROUGHOUT SHIFT, VS STABLE WITH HR IN 80S, SPO2 >92% ON RA. PT HAD NO COMPLAINTS OF PAIN T/O SHIFT. NO SIGNIFICANT CHANGES. REPORT GIVEN BY SOFÍA RN TO ROOM 355 RN AND PT TO ROOM AT APPROXIMATELY THIS TIME VIA WHEELCHAIR.
--- NOTE | 2022-05-16 16:43 | NUR ---
Patient transferred from PCU. Patient is AOx4, independent in the room. Vitals stable, saturations stable on RA. No c/o pain or discomfort at this time. 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 Will continue plan of care, awaiting discharge planning.
[2022-05-17 05:16] LABS: BASOPHILS ABSOLUTE AUTO 0.04 K/mm3 (0.00-0.23); BASOPHILS PERCENT AUTO 0 % (0-2); EOSINOPHILS ABSOLUTE AUTO 0.17 K/mm3 (0.00-0.68); EOSINOPHILS PERCENT AUTO 1 % (0-6); Hematocrit 25.9 % (33.0-51.0); Hemoglobin 8.2 g/dL (11.5-16.0); IMMATURE GRAN ABSOLUTE AUTO 0.11 K/mm3 (0.00-0.10); IMMATURE GRAN PERCENT AUTO 1 % (0-1); LYMPHOCYTES ABSOLUTE AUTO 1.73 K/mm3 (0.84-5.20); LYMPHOCYTES PERCENT AUTO 12 % (21-46); MONOCYTES PERCENT AUTO 9 % (4-13); Mean Corpuscular HGB 28.5 pg (26.0-34.0); Mean Corpuscular HGB Conc 31.7 g/dL (31.5-36.5); Mean Corpuscular Volume 90 fL (80-100); Mean Platelet Volume 10.5 fL (9.1-12.4); NEUTROPHILS ABSOLUTE AUTO 10.72 K/mm3 (1.96-9.15); NEUTROPHILS PERCENT AUTO 76 % (41-73); Platelet Count 437 K/mm3 (150-400); RDW Coefficient Variation 14.8 % (11.7-14.2); Red Blood Cell Count 2.88 M/mm3 (3.80-5.20); White Blood Cell Count 14.07 K/mm3 (4.00-11.30)
--- NOTE | 2022-05-17 05:23 | NUR ---
Shift Summary AOx4, independent in room, pleasant and cooperative. PT c/o constipation for 3 days, called hospitalist and started pt on bowel medications. PT c/o difficulty breathing, saw RT who did a treatment and breathing was improved. On RA, sat>92%. Hypertensive at start of shift, BP normalized after scheduled Minipress. No acute events. Possible D/C today per 's notes.
[2022-05-17 08:33] LABS: Calcium, Blood 8.4 mg/dL (8.5-10.1); Creatinine, Blood 0.86 mg/dL (0.40-1.00); Potassium, Blood 3.4 mmol/L (3.5-5.5)
[2022-05-17] MEDS ORDERED: ROPI.25 PO (13:17)
[2022-05-17] MEDS ORDERED: GUAI600T33 PO (13:17)
[2022-05-17] MEDS ORDERED: AMOCLA875 PO (13:18)
--- NOTE | 2022-05-17 14:32 | NUR ---
Upon receiving areferral for spiritual care, I visited the patient. Pt is lying in bed and resting and has her dtr, Reema bedside. Patient tells me about her medical history, her tendency to keep going until she can't and how that delay in getting help has impacted her health adversely. Reema and the patient tell me about their family, pt's cereers in retail and the new living arrangements as pt has moved in with Reema and her spouse. We discuss their [employer]ism beliefs and the strength that they both have gained from their prayers. I encourage self care, explore sources of value and meaning, and provide theraeputic listening and prayer. Patient and reema responded well and showed signs of being encouraged in their jd and having an increase in peace. I will continue to remain available to patient and family.
--- NOTE | 2022-05-17 15:13 | NUR ---
DISCHARGE: PT D/C THE HOSPITAL VIA WHEELCHAIR WITH DAUGHTER. TELE AND IV DC'D W/O ISSUES. PHARMACIST ARRIVED BEFORE DISCHARGE TO TALK TO PT ABOUT NEW MEDICATIONS. MADE FOLLOW-UP APPOINTMENT FOR PT ON Monday05-17-22 AT 10:15 WITH PRIMARY CARE. PT AND DAUGHTER STATED THEY UNDERSTOOD D/C INSTRUCTIONS. ALL BELONGINGS SENT WITH PT.
== END 2022-05-17 14:52 | disposition home or self-care (01) | DRG 871 ==
LOC: ER 10:39 → ERHOLD 15:47 → ER 15:47 → EDBEDREQ 16:06 → EDBEDREQSVC 16:06 → MEDS 16:59 → ERHOLD 16:59 → PCU 16:59 → MEDS 05-16 14:39
PROVIDERS: Internal Medicine; Nurse Practitioner Acute Care; Student in an Organized Health Care Education/Training Program; ADMIT Internal Medicine
DX: A41.9 Sepsis, unspecified organism (principal); J18.9 Pneumonia, unspecified organism; J96.01 Acute respiratory failure with hypoxia; N39.0 Urinary tract infection, site not specified; E87.1 Hypo-osmolality and hyponatremia; J44.0 Chronic obstructive pulmonary disease with (acute) lower respiratory infection; Z20.822 Contact with and (suspected) exposure to COVID-19; Z28.21 Immunization not carried out because of patient refusal; E03.9 Hypothyroidism, unspecified; G47.33 Obstructive sleep apnea (adult) (pediatric); F41.9 Anxiety disorder, unspecified; F32.A Depression, unspecified; E78.5 Hyperlipidemia, unspecified; I25.10 Atherosclerotic heart disease of native coronary artery without angina pectoris; K21.9 Gastro-esophageal reflux disease without esophagitis; F17.210 Nicotine dependence, cigarettes, uncomplicated; E87.6 Hypokalemia; E83.42 Hypomagnesemia; D72.828 Other elevated white blood cell count; T38.0X5A Adverse effect of glucocorticoids and synthetic analogues, initial encounter; I12.9 Hypertensive chronic kidney disease with stage 1 through stage 4 chronic kidney disease, or unspecified chronic kidney disease; N18.30 Chronic kidney disease, stage 3 unspecified; D63.1 Anemia in chronic kidney disease; F43.10 Post-traumatic stress disorder, unspecified; Z99.89 Dependence on other enabling machines and devices; Z95.1 Presence of aortocoronary bypass graft; Z90.49 Acquired absence of other specified parts of digestive tract; Z98.890 Other specified postprocedural states; Z88.2 Allergy status to sulfonamides; Z88.5 Allergy status to narcotic agent; Z79.02 Long term (current) use of antithrombotics/antiplatelets; Z79.899 Other long term (current) drug therapy
CPT/HCPCS: 0241U; 36415; 51701; 71046; 71260; 80048; 80053; 81001; 83605; 83690; 83735; 84439; 84443; 85025; 87040; 87070; 87086; 87205; 87449; 93005; 93010; 94640; 94664; 94760; 94762; 96374-59; 96375-59; 97110; 97161; 99285-25; A9270; J0295; J0456; J0696; J1450; J1650; J2405; J3370; J3475; J7030; J7050; Q9967

== ENCOUNTER → 2022-09-28 | Outpatient (CLI) | payer OTHER ==
[~2022-09-28] MED LIST changes: +AMOCLA875 PO; +FLUT1DIS5 INH; +GUAI600T33 PO; +OLME20 PO; +ROPI.25 PO
== END | disposition home or self-care (01) ==
LOC: LAB 16:46 → LAB SHORT 16:46
DX: N30.01 Acute cystitis with hematuria (principal)
CPT/HCPCS: 87086

== ENCOUNTER → 2022-10-08 | Outpatient (CLI) | payer OTHER ==
[2022-10-11 07:11] LABS: HSV-1 DNA Negative (Negative); HSV-2 DNA Negative (Negative)
== END | disposition home or self-care (01) ==
LOC: LAB SHORT 11:03 → LAB 11:03
PROVIDERS: Emergency Medicine
DX: B02.9 Zoster without complications (principal)
CPT/HCPCS: 87529

== ENCOUNTER → 2022-12-16 | Outpatient (CLI) | payer OTHER | LOC: LAB 16:32 | DX: R07.89 Other chest pain (principal) ==

== ENCOUNTER → 2023-11-08 | Outpatient (CLI) | payer OTHER | LOC: LAB SHORT 17:19 → LAB 17:19 | DX: R35.0 Frequency of micturition (principal) | CPT/HCPCS: 87086 ==

== ENCOUNTER → 2024-02-17 | Outpatient (CLI) | payer OTHER | END | disposition home or self-care (01) | LOC: LAB 16:56 → LAB SHORT 16:56 | DX: N39.0 Urinary tract infection, site not specified (principal) | CPT/HCPCS: 87077; 87086; 87186 ==

== ENCOUNTER 2024-03-30 21:41 | Emergency (ER) | payer OTHER ==
[~2024-03-30] VITALS: Ht 162.6 cm; Wt 74.8 kg
[2024-03-30] MEDS ORDERED: PROP10 PO (22:10)
[2024-03-30] MEDS ORDERED: GABA100 PO (22:10)
[2024-03-30] MEDS ORDERED: Ipratropium/Albuterol SulF 2.5-0.5MG/3 ML Amp INH ONE (22:35)
[2024-03-30 22:36] LABS: BASOPHILS ABSOLUTE AUTO 0.08 K/mm3 (0.00-0.23); BASOPHILS PERCENT AUTO 1 % (0-2); EOSINOPHILS ABSOLUTE AUTO 0.36 K/mm3 (0.00-0.68); EOSINOPHILS PERCENT AUTO 3 % (0-6); Hemoglobin 13.4 g/dL (11.5-16.0); IMMATURE GRAN ABSOLUTE AUTO 0.03 K/mm3 (0.00-0.10); IMMATURE GRAN PERCENT AUTO 0 % (0-1); LYMPHOCYTES ABSOLUTE AUTO 2.75 K/mm3 (0.84-5.20); LYMPHOCYTES PERCENT AUTO 21 % (21-46); MONOCYTES ABSOLUTE AUTO 0.99 K/mm3 (0.16-1.47); MONOCYTES PERCENT AUTO 8 % (4-13); Mean Corpuscular HGB 30.4 pg (26.0-34.0); Mean Corpuscular HGB Conc 32.7 g/dL (31.5-36.5); Mean Corpuscular Volume 93 fL (80-100); Mean Platelet Volume 10.2 fL (9.1-12.4); NEUTROPHILS ABSOLUTE AUTO 8.76 K/mm3 (1.96-9.15); NEUTROPHILS PERCENT AUTO 68 % (41-73); Platelet Count 243 K/mm3 (150-400); RDW Coefficient Variation 12.6 % (11.7-14.2); RDW Standard Deviation 43.1 fL (35.1-46.3); Red Blood Cell Count 4.41 M/mm3 (3.80-5.20); White Blood Cell Count 12.97 K/mm3 (4.00-11.30)
[2024-03-30 22:41] LABS: Albumin, Blood 3.2 g/dL (3.4-5.0); Albumin/Globulin Ratio 0.8 (0.8-1.8); Bilirubin, Total 0.3 mg/dL (0.1-1.0); Bun/Creatinine Ratio 12.7 (12.0-20.0); Calcium, Blood 9.5 mg/dL (8.5-10.1); Creatinine, Blood 1.02 mg/dL (0.40-1.00); Globulin, Blood 4.2 g/dL (2.2-4.0); Potassium, Blood 3.5 mmol/L (3.5-5.5); Total Protein, Blood 7.4 g/dL (6.4-8.2)
[2024-03-30] MEDS ORDERED: Ketorolac Tromethamine 15mg Vial IV ONE (23:10)
[2024-03-30] MEDS ORDERED: PRED20 PO (23:29)
[2024-03-30 23:30] VITALS: BP 168/94
[2024-03-30] MEDS ORDERED: PredniSONE 20 MG Tab PO ONE (23:30)
== END 2024-03-30 23:39 | disposition home or self-care (01) ==
LOC: ER 21:41
PROVIDERS: Physician Assistant
DX: J44.1 Chronic obstructive pulmonary disease with (acute) exacerbation (principal); R51.9 Headache, unspecified; I10 Essential (primary) hypertension; E03.9 Hypothyroidism, unspecified; Z79.899 Other long term (current) drug therapy; Z79.890 Hormone replacement therapy; Z88.2 Allergy status to sulfonamides; Z88.5 Allergy status to narcotic agent; Z87.891 Personal history of nicotine dependence
CPT/HCPCS: 71046; 80053; 84484; 85025; 93005; 93010; 94640; 94664; 96374; 99285-25; J1885; J7512